=== PATIENT | female | born 1990 | race Caucasian/White ===

== ENCOUNTER 2023-03-11 09:20 | Emergency (ER) | payer MEDICAID ==
[~2023-03-11] VITALS: Ht 157.5 cm; Wt 67.6 kg
[2023-03-11 09:47] VITALS: BP 107/64
[2023-03-11] MEDS ORDERED: BENZ-300 PO (10:45)
[2023-03-11] MEDS ORDERED: LORA10TA19 PO (10:45)
[2023-03-11] MEDS ORDERED: HYDR28CR38 TP (10:45)
[2023-03-11] MEDS ORDERED: DEXAMETHASONE 10 MG/ML VIAL IM ONE (10:45)
--- NOTE | 2023-03-11 11:17 | NUR ---
Patient discharged with v/s stable. Written and verbal after care instructions given and explained. Patient verbalized understanding. Ambulatory with steady gait. All questions addressed prior to discharge. Advised to follow up with PMD.
== END 2023-03-11 11:16 | disposition home or self-care (01) ==
LOC: MED 09:20
DX: J02.9 Acute pharyngitis, unspecified (principal); R21 Rash and other nonspecific skin eruption; M54.2 Cervicalgia; Z79.899 Other long term (current) drug therapy
CPT/HCPCS: 87081; 96372; 99283; J1100